=== PATIENT | male | born 1990 | race Caucasian/White ===

== ENCOUNTER 2016-12-22 17:00 | Emergency (ER) | payer SELFPAY ==
--- NOTE | 2016-12-22 17:52 | RADIOLOGY REPORT (SQ) ---
EXAM DESCRIPTION: HAND LEFT 3 VIEWS COMPLETED DATE/TIME: 12/22/2016 5:41 pm REASON FOR STUDY: pain COMPARISON: None. EXAM PARAMETERS: NUMBER OF VIEWS: Three views. TECHNIQUE: AP, lateral and oblique radiographic images acquired of the left hand. LIMITATIONS: None. FINDINGS: MINERALIZATION: Normal. BONES: A fracture involving the midportion of the 5th metacarpal is identified. No other evidence fo r fracture is seen. JOINTS: No effusions. SOFT TISSUES: No soft tissue swelling. No foreign body. OTHER: No other significant finding. IMPRESSION: Fracture of the 5th metacarpal TECHNICAL DOCUMENTATION: JOB ID: [id number] [employer]- All Rights Reserved
--- NOTE | 2016-12-22 17:53 | RADIOLOGY REPORT (SQ) ---
EXAM DESCRIPTION: HAND RIGHT 3 VIEWS COMPLETED DATE/TIME: 12/22/2016 5:41 pm REASON FOR STUDY: pain COMPARISON: None. EXAM PARAMETERS: NUMBER OF VIEWS: Three views. TECHNIQUE: AP, lateral and oblique radiographic images acquired of the right hand. LIMITATIONS: None. FINDINGS: MINERALIZATION: Normal. BONES: No acute fracture or dislocation. No worrisome bone lesions. JOINTS: No effusions. SOFT TISSUES: No soft tissue swelling. No foreign body. OTHER: Orthopedic plate transfixed by orthopedic screws is identified at the level of the 5th metacar pal. IMPRESSION: No acute fracture or dislocation. Orthopedic hardware at the level of the 5th metacarpa l. Other findings as noted above TECHNICAL DOCUMENTATION: JOB ID: [id number] [employer] All Rights Reserved
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
[2016-12-22] MEDS ORDERED: AMOXICILLIN TR/POT CLAVULANATE 500-125 MG TAB PO ONE (18:26)
[2016-12-22] MEDS: HYDROCODONE/ACETAMINOPHEN 5-325 MG 6 TAB/DSPK PO PRN ×2 (18:52→19:07)
[2016-12-22 19:14] VITALS: BP 159/91
== END 2016-12-22 19:14 | disposition home or self-care (01) ==
LOC: ER 17:00
PROC: 2W3DX1Z Immobilization of Left Lower Arm using Splint (ICD-10-PCS; principal; 2016-12-22)
DX: S62.327A Displaced fracture of shaft of fifth metacarpal bone, left hand, initial encounter for closed fracture (principal); S60.511A Abrasion of right hand, initial encounter; S60.512A Abrasion of left hand, initial encounter; M79.642 Pain in left hand; M79.641 Pain in right hand; M79.89 Other specified soft tissue disorders; Y04.2XXA Assault by strike against or bumped into by another person, initial encounter; F17.210 Nicotine dependence, cigarettes, uncomplicated
CPT/HCPCS: 99283

== ENCOUNTER 2019-12-08 20:35 | Observation (INO) | payer SELFPAY ==
[2019-12-08] MEDS ORDERED: NORMAL SALINE 1000 ML 1,000 ML IV ONE (20:49)
[2019-12-08] MEDS ORDERED: ONDANSETRON HCL INJ/PF 4 MG/2 ML SDV IV ONE (20:49)
[2019-12-08] MEDS ORDERED: FENTANYL CITRATE INJ/PF 100 MCG/2 ML AMPUL IV ONE (20:50)
--- NOTE | 2019-12-08 20:51 | ER Document Report ---
ED Medical Screen (RME) - General Stated Complaint: ABDOMINAL PAIN Time Seen by Provider: 12/08/19 20:46 Mode of Arrival: Wheelchair Information source: Patient Notes: Patient presents complaining of abdominal pain that started today with right groin pain and testicular tenderness. Patient reports nausea vomiting x6 episodes today. Patient reports decreased urine output today. Patient has a history of hypertension, depression and cholecystectomy. I have greeted and performed a rapid initial assessment of this patient. A comprehensive ED assessment and evaluation of the patient, analysis of test results and completion of the medical decision making process will be conducted by additional ED providers. TRAVEL OUTSIDE OF THE [place] IN LAST 30 DAYS: No - Related Data Allergies/Adverse Reactions: No Known Allergies Allergy (Verified 12/22/16 17:11) Past Medical History - Past Medical History Cardiac Medical History: Reports: Hx Hypertension Renal/ Medical History: Denies: Hx Peritoneal Dialysis Musculoskeltal Medical History: Reports Hx Arthritis, Reports Hx Musculoskeletal Deformity, Reports Hx Musculoskeletal Trauma Psychiatric Medical History: Reports: Hx Attention Deficit Hyperactivity Disorder, Hx Bipolar Disorder, Hx Post Traumatic Stress Disorder Traumatic Medical History: Reports: Hx Fractures - Boxer fracture and foot fracture Past Surgical History: Reports: Hx Cholecystectomy, Hx Orthopedic Surgery - Right boxer fracture - Immunizations Immunizations up to date: Yes Hx Diphtheria, Pertussis, Tetanus Vaccination: Yes Physical Exam - Vital signs Vitals: Temp Pulse Resp BP Pulse Ox 97.6 F 70 20 140/66 H 100 12/08/19 20:43 12/08/19 20:43 10 20:43 12/08/19 20:43 12/08/19 20:43 - Abdominal Tenderness: Tender - Generalized abdomen, worse to right side of abdomen Course - Vital Signs Vital signs: Temp Pulse Resp BP Pulse Ox 97.6 F 70 20 140/66 H 100 12/08/19 20:43 12/08/19 20:43 12/08/19 20:43 12/08/19 20:43 12/08/19 20:43
--- NOTE | 2019-12-08 21:56 | ER Document Report ---
ED GI/ - General Chief Complaint: Abdominal Pain Stated Complaint: ABDOMINAL PAIN Time Seen by Provider: 12/08/19 20:46 Mode of Arrival: Wheelchair Notes: CHIEF COMPLAINT: Right side abdominal pain with vomiting HPI: 29-year-old male with no kidney stone history presenting with sudden onset of right-sided abdominal pain with multiple episodes of vomiting. Patient states the pain seems to radiate from the right upper quadrant down through the right lower quadrant and up behind the testicles and scrotum. Denies hematuria. Denies fever. Has had multiple episodes of vomiting. States nothing seems to change the discomfort although he does report increased pain with palpation of the abdomen ROS: See HPI - all other systems were reviewed and are otherwise negative Constitutional: no fever Eyes: no drainage, no blurred vision ENT: no runny nose, no sore throat Cardiovascular: no chest pain Resp: no SOB, no cough GI: + vomiting, no diarrhea, + abdominal pain : no dysuria, positive pain behind testicles Integumentary: no rash Allergy: no hives Musculoskeletal: no extremity pain or swelling Neurological: no numbness/tingling, no weakness MEDICATIONS: I agree with the patient medications as charted by the RN. ALLERGIES: I agree with the allergies as charted by the RN. PAST MEDICAL HISTORY/PAST SURGICAL HISTORY: Reviewed and agree as charted by RN. SOCIAL HISTORY: Reviewed and agree as charted by RN. FAMILY HISTORY: No significant familial comorbid conditions directly related to patient complaint EXAM: Reviewed vital signs as charted by RN. CONSTITUTIONAL: Alert and oriented and responds appropriately to questions. Moderate distress secondary to pain; well-nourished HEAD: Normocephalic; atraumatic EYES: PERRL; Conjunctivae clear, sclerae non-icteric ENT: normal nose; no rhinorrhea; moist mucous membranes NECK: Supple without meningismus CARD: RRR; no murmurs, no clicks, no rubs, no gallops; symmetric distal pulses RESP: Normal chest excursion without splinting or tachypnea; breath sounds clear and equal bilaterally; no wheezes, no rhonchi, no rales, pulse oximetry 98% on room air not hypoxic ABD/GI: Normal bowel sounds; non-distended; soft, mild tenderness to the right abdomen on palpation., no rebound, no guarding; no palpable organomegaly or masses. : Uncircumcised male. Bilateral testicles are descended and nontender no palpable masses. No visible or palpable inguinal or scrotal hernias. Right testicle is not high riding. BACK: The back appears normal and is non-tender to palpation, there is no CVA tenderness EXT: Normal ROM in all joints; non-tender to palpation; no cyanosis, no effusions, no edema SKIN: Normal color for age and race; warm; diaphoretic; good turgor; no acute lesions noted NEURO: Moves all extremities equally; Motor and sensory function intact PSYCH: The patient's mood and manner are appropriate. Grooming and personal hygiene are appropriate. MDM: 29-year-old male sudden onset of right-sided abdominal pain with nausea vomiting I suspect renal colic. Initial screening labs placed via triage process. TRAVEL OUTSIDE OF THE [place] IN LAST 30 DAYS: No - Related Data Allergies/Adverse Reactions: No Known Allergies Allergy (Verified 12/22/16 17:11) Past Medical History - General Information source: Patient - Social History Smoking Status: Current Every Day Smoker Chew tobacco use (# tins/day): No Frequency of alcohol use: Occasional Drug Abuse: Marijuana Family History: Arthritis, CAD, COPD, CVA, DM, Hyperlipidemia, Hypertension. denies: Malignancy, Thyroid Disfunction - Past Medical History Cardiac Medical History: Reports: Hx Hypertension Renal/ Medical History: Denies: Hx Peritoneal Dialysis Musculoskeletal Medical History: Reports Hx Arthritis, Reports Hx Musculoskeletal Deformity, Reports Hx Musculoskeletal Trauma Psychiatric Medical History: Reports: Hx Attention Deficit Hyperactivity Disorder, Hx Bipolar Disorder, Hx Post Traumatic Stress Disorder Traumatic Medical History: Reports: Hx Fractures - Boxer fracture and foot fracture Past Surgical History: Reports: Hx Cholecystectomy, Hx Orthopedic Surgery - Right boxer fracture - Immunizations Immunizations up to date: Yes Hx Diphtheria, Pertussis, Tetanus Vaccination: Yes Physical Exam - Vital signs Vitals: Temp Pulse Resp BP Pulse Ox 97.6 F 70 20 140/66 H 100 12/08/19 20:43 12/08/19 20:43 12/08/19 20:43 12/08/19 20:43 12/08/19 20:43 Course - Re-evaluation Re-evalutation: 12/08/19 23:12 Patient with a significant leukocytosis of 23.5. Patient CT shows possible early changes of appendicitis, discussed with Dr. Malave who is in the emergency department at the moment and will go see the patient and admit. Requests Rocephin 2 g IV, clindamycin 900 mg IV. Discussed with the patient - Vital Signs Vital signs: Temp Pulse Resp BP Pulse Ox 97.6 F 70 20 140/66 H 100 12/08/19 20:43 12/08/19 20:43 12/08/19 20:43 12/08/19 20:43 12/08/19 20:43 - Laboratory Result Diagrams: 12/08/19 21:40 12/08/19 21:40 Laboratory results interpreted by me: 12/08/19 12/08/19 21:40 21:40 WBC 23.4 H Seg Neuts % (Manual) 83 H Lymphocytes % (Manual) 10 L Abs Neuts (Manual) 19.4 H Glucose 115 H Discharge - Discharge Clinical Impression: Acute appendicitis Qualifiers: Acute appendicitis type: with localized peritonitis Appendicitis gangrene presence: without gangrene Appendicitis perforation presence: without perforation Appendicitis abscess presence: without abscess Qualified Code(s): K35.30 - Acute appendicitis with localized peritonitis, without perforation or gangrene Condition: Stable Disposition: ADMITTED INPATIENT Admitting Provider: Surgicalist - Dr. Malave Unit Admitted: Surgical Floor
[2019-12-08 22:07] LABS: HEMOGLOBIN 14.3 g/dL (13.5-17.0); MEAN CORPUSCULAR HEMOGLOBIN 30.7 pg (27.0-33.4); MEAN CORPUSCULAR VOLUME 88 fl (80-97); PLATELET COUNT 229 10^3/uL (150-450); RED BLOOD COUNT 4.67 10^6/uL (4.35-5.55); RED CELL DISTRIBUTION WIDTH 13.4 % (11.5-14.0); WHITE BLOOD COUNT 23.4 10^3/uL (4.0-10.5)
[2019-12-08 22:14] LABS: ALBUMIN 4.3 g/dL (3.5-5.0); ALKALINE PHOSPHATASE 78 U/L (38-126); ANION GAP 11 (5-19); ASPARTATE AMINO TRANSFERASE 28 U/L (17-59); BILIRUBIN,DIRECT 0.2 mg/dL (0.0-0.4); BILIRUBIN,TOTAL 0.8 mg/dL (0.2-1.3); BLOOD UREA NITROGEN 10 mg/dL (7-20); CALCIUM 9.8 mg/dL (8.4-10.2); CARBON DIOXIDE 23 mmol/L (22-30); CHLORIDE 104 mmol/L (98-107); GLUCOSE 115 mg/dL (75-110); POTASSIUM 4.2 mmol/L (3.6-5.0); TOTAL PROTEIN 7.1 g/dL (6.3-8.2)
[2019-12-08 22:37] LABS: ABSOLUTE LYMPHOCYTES# (MANUAL) 2.3 10^3/uL (0.5-4.7); ABSOLUTE MONOCYTES # (MANUAL) 1.4 10^3/uL (0.1-1.4); BASOPHILS % (MANUAL) 0 % (0-2); EOSINOPHILS % (MANUAL) 1 % (0-6); LYMPHOCYTES % (MANUAL) 10 % (13-45); MONOCYTES % (MANUAL) 6 % (3-13); SEGMENTED NEUTROPHILS % (MAN) 83 % (42-78); TOTAL CELLS COUNTED 100
[2019-12-08 22:38] LABS: PLATELET COMMENT ADEQUATE; RBC MORPHOLOGY COMMENT NORMO-CYTIC/CHROMIC
--- NOTE | 2019-12-08 23:02 | RADIOLOGY REPORT (SQ) ---
EXAM DESCRIPTION: CT ABDOMEN PELVIS WITH IV CONTRAST COMPLETED DATE/TME: 12/08/2019 20:49 CLINICAL HISTORY: 29 years, Male, right side abd pain COMPARISON: None. TECHNIQUE: Postcontrast images of the abdomen and pelvis were obtained utilizing 100 mL Omnipaque 350 intravenously. Images stored on PACS. All CT scanners at this facility use dose modulation, iterative reconstruction, and/or weight based dosing when appropriate to reduce radiation dose to as low as reasonably achievable (ALARA). [facility]: Dose Right [facility]: CareDose [facility]: Dose Right [facility]: Teradose 4D [facility]: gestigon LIMITATIONS: None. FINDINGS: The visualized lung bases are clear. There is mild fat stranding adjacent to the appendix and there is hyperenhancement of the appendiceal wall, concerning for early acute appendicitis. No evidence of abscess, free air, or free fluid. There is generalized fatty infiltration of the liver. The patient is status post cholecystectomy. No additional solid or hollow visceral and abnormality is seen. No acute or suspicious bony abnormality is seen. IMPRESSION: Abnormal appearance about the appendix most consistent with changes of early acute appendicitis. No evidence of free air or abscess. TECHNICAL DOCUMENTATION: Quality ID # [id number]: Final reports with documentation of one or more dose reduction techniques (e.g., Automated exposure control, adjustment of the mA and/or kV according to patient size, use of iterative reconstruction technique) copyright 2011 [employer]- All Rights Reserved
[2019-12-08] MEDS ORDERED: CEFTRIAXONE 2 GM/D5W RTU 2 GM/50 ML RTUPB IV ONE (23:11)
[2019-12-08] MEDS ORDERED: CLINDAMYCIN 900 MG/D5W RTU 900 MG/50 ML RTUPB IV ONE (23:11)
[2019-12-08 23:24] LABS: APPEARANCE,URINE CLEAR; BILIRUBIN,URINE NEGATIVE (NEGATIVE); COLOR,URINE YELLOW; GLUCOSE, URINE NEGATIVE (NEGATIVE); KETONES,URINE 20 mg/dL (NEGATIVE); LEUKOCYTE ESTERASE,URINE NEGATIVE (NEGATIVE); NITRITE,URINE NEGATIVE (NEGATIVE); PROTEIN,URINE 30 mg/dL (NEGATIVE); URINE SPECIFIC GRAVITY 1.044; UROBILINOGEN,URINE NEGATIVE mg/dL (<2.0)
--- NOTE | 2019-12-08 23:57 | PDOC H&P ---
History of Present Illness Admission Date/PCP: 12/08/19 23:22 Patient complains of: Right lower quadrant pain for 12 hours History of Present Illness: NICOLE NARAYANAN is a 29 year old male, healthy, obese, with a 12-hour history of right lower quadrant pain intense nausea. The pain has become more intense since the morning and prompted the patient to come to emergency room. Past Medical History Cardiac Medical History: Reports: Hypertension Musculoskeltal Medical History: Reports: Arthritis Psychiatric Medical History: Reports: Attention Deficit Hyperactivity Disorder, Bipolar Disorder, Post Traumatic Stress Disorder Past Surgical History Past Surgical History: Reports: Cholecystectomy, Orthopedic Surgery - Right boxer fracture Social History Smoking Status: Current Every Day Smoker Electronic Cigarette use?: No Family History Family History: Arthritis, CAD, COPD, CVA, DM, Hyperlipidemia, Hypertension. denies: Malignancy, Thyroid Disfunction Parental Family History Reviewed: Yes - Multiple conditions, see above Children Family History Reviewed: No Sibling(s) Family History Reviewed.: No Medication/Allergy Home Medications: Hydrocodone Bit/Acetaminophen [Vicodin 5-500 mg Tablet] 1 - 2 tab PO ASDIR PRN #15 tablet 11/28/11 No Home Medications 1 11/28/11 Doxycycline Hyclate 100 mg PO BID #20 capsule 10/21/14 Hydrocodone/Acetaminophen [[place]umming 5-325 Tablet] 1 each PO Q4 PRN #12 tablet 10/21/14 Amox Tr/Potassium Clavulanate [Augmentin 875-125 Tablet] 1 tab PO BID 10 Days tablet 12/22/16 Allergies/Adverse Reactions: No Known Allergies Allergy (Verified 12/22/16 17:11) Physical Exam Vital Signs: Temp Pulse Resp BP Pulse Ox 97.6 F 70 20 140/66 H 100 12/08/19 20:43 12/08/19 20:43 12/08/19 20:43 12/08/19 20:43 12/08/19 20:43 Intake & Output 12/07/19 12/08/19 12/09/19 06:59 06:59 06:59 Weight 129.7 kg General appearance: PRESENT: mild distress, obese Head exam: PRESENT: atraumatic Eye exam: PRESENT: EOMI Mouth exam: PRESENT: neck supple Teeth exam: PRESENT: poor dentation Neck exam: PRESENT: full ROM Respiratory exam: PRESENT: clear to auscultation garrett Cardiovascular exam: PRESENT: RRR GI/Abdominal exam: PRESENT: guarding - Lower quadrant, hypoactive bowel sounds, soft, tenderness - Lower quadrant Rectal exam: PRESENT: deferred Extremities exam: PRESENT: full ROM Musculoskeletal exam: PRESENT: full ROM Neurological exam: PRESENT: alert, awake, oriented to person Psychiatric exam: PRESENT: appropriate affect Skin exam: PRESENT: warm Results Laboratory Results: 12/08/19 21:40 12/08/19 21:40 12/08/19 12/08/19 12/08/19 21:40 21:40 23:00 WBC 23.4 H RBC 4.67 Hgb 14.3 Hct 41.0 MCV 88 MCH 30.7 MCHC 35.0 RDW 13.4 Plt Count 229 Seg Neutrophils % Not Reportable Sodium 137.9 Potassium 4.2 Chloride 104 Carbon Dioxide 23 Anion Gap 11 BUN 10 Creatinine 0.88 Est GFR ( Amer) > 60 Glucose 115 H Calcium 9.8 Total Bilirubin 0.8 AST 28 Alkaline Phosphatase 78 Total Protein 7.1 Albumin 4.3 Lipase 102.3 Urine Color YELLOW Urine Appearance CLEAR Urine pH 9.0 Ur Specific [place] 1.044 Urine Protein 30 H Urine Glucose (UA) NEGATIVE Urine Ketones 20 H Urine Blood NEGATIVE Urine Nitrite NEGATIVE Ur Leukocyte Esterase NEGATIVE Urine WBC (Auto) 0 Urine RBC (Auto) 3 Impressions: Abdomen/Pelvis CT 12/08/19 20:49 IMPRESSION: Abnormal appearance about the appendix most consistent with changes of early acute appendicitis. No evidence of free air or abscess. TECHNICAL DOCUMENTATION: Quality ID # [id number]: Final reports with documentation of one or more dose reduction techniques (e.g., Automated exposure control, adjustment of the mA and/or kV according to patient size, use of iterative reconstruction technique) copyright 2011 [employer]- All Rights Reserved Assessment & Plan - Diagnosis (1) Acute appendicitis Qualifiers: Acute appendicitis type: with localized peritonitis Appendicitis gangrene presence: without gangrene Appendicitis perforation presence: without perforation Appendicitis abscess presence: without abscess Qualified Code(s): K35.30 - Acute appendicitis with localized peritonitis, without perforation or gangrene - Time Anticipated Discharge Disposition: Home, Self Care Anticipated Discharge Timeframe: within 48 hours - Plan Summary Plan Summary: Assessment: Right lower quadrant pain for the past 12 hours Leukocytosis 23,[address] scan abdomen/pelvis significant for acute appendicitis No other significant medical problems Plan: Rapid the COVID-19 test Laparoscopic appendectomy, possible open tonight Procedure, benefits, complications, risks, explained to the patient, he understands all the above, his questions answered, he decides to proceed Rocephin 2 g IV piggyback Clindamycin 900 mg IV piggyback P.o. preop Normal saline 2 L bolus and then 150 L per hour
[2019-12-09] MEDS ORDERED: BUPIVACAINE HCL 0.5%-EPI 1:200000 INJ/PF 30 ML VIAL ONE (00:35)
[2019-12-09] MEDS ORDERED: HYDROMORPHONE HCL INJ/PF 2 MG/ML AMPULE ONE ×2 (01:42→06:57)
[2019-12-09] MEDS ORDERED: FENTANYL CITRATE INJ/PF 250 MCG/5 ML AMPULE ONE (01:42)
[2019-12-09] MEDS ORDERED: MIDAZOLAM 2 MG/2 ML INJ ONE ×2 (01:42→06:58)
[2019-12-09] MEDS ORDERED: PROPOFOL INJ 200 MG/20 ML VIAL IV ONE ×2 (01:42→06:58)
[2019-12-09] MEDS ORDERED: ROCURONIUM BROMIDE INJ 50 MG/5 ML VIAL IV ONE (02:00)
[2019-12-09] MEDS ORDERED: SUCCINYLCHOLINE CHLORIDE INJ 200 MG/10 ML VIAL ONE (02:00)
[2019-12-09] MEDS ORDERED: ONDANSETRON HCL INJ/PF 4 MG/2 ML SDV ONE (02:00)
[2019-12-09] MEDS ORDERED: DEXAMETHASONE SOD PHOSPHATE INJ 4 MG/1 ML VIAL ONE (02:00)
[2019-12-09] MEDS ORDERED: NEOSTIGMINE METHYLSULFATE 10 MG/10 ML VIAL ONE (02:00)
[2019-12-09] MEDS ORDERED: GLYCOPYRROLATE 1 MG/5 ML VIAL ONE (02:00)
[2019-12-09] MEDS ORDERED: ALBUTEROL SULFATE HFA (90 MCG/PUFF) 8 GM MDI IH ONE (02:00)
[2019-12-09] MEDS ORDERED: MORPHINE SULFATE 10 MG/ML INJ IV PRN (02:15)
[2019-12-09] MEDS ORDERED: FENTANYL CITRATE INJ/PF 100 MCG/2 ML AMPUL IV PRN ×3 (02:15)
[2019-12-09] MEDS ORDERED: DIPHENHYDRAMINE HCL 50 MG/ML VIAL IV PRN (02:15)
[2019-12-09] MEDS ORDERED: PROMETHAZINE HCL INJ 25 MG/1 ML VIAL IV PRN (02:15)
[2019-12-09] MEDS ORDERED: MEPERIDINE HCL/PF INJ 25 MG/1 ML DISP.SYRIN IV PRN (02:15)
--- NOTE | 2019-12-09 02:30 | Operative Report ---
Operative Report DATE OF SURGERY: 12/09/19 PREOPERATIVE DIAGNOSIS: acute appendicitis POSTOPERATIVE DIAGNOSIS: same OPERATION: Laparoscopic appendectomy SURGEON: AVE ONTIVEROS ANESTHESIA: GA - 20 mL 0.25% Marcaine TISSUE REMOVED OR ALTERED: Appendix COMPLICATIONS: None ESTIMATED BLOOD LOSS: Negligible INTRAOPERATIVE FINDINGS: Acutely inflamed appendix without perforation PROCEDURE: The procedure was done in the operating room. The patient was placed in a supine position, general anesthesia induced by endotracheal intubation, the abdomen was prepped and draped in usual fashion. An incision was made just above the umbilicus with a #15 blade, the skin was tented with towel clips and a 5 mm port with Optiview adapter and scope were inserted through the abdominal wall into the peritoneal cavity. After they CO2 pneumoperitoneum was obtained, under direct visualization a 5 mm report was inserted in the right lateral quadrant of the abdomen following skin incision. The scope was removed from the umbilical port and inserted into the right side port. The 5 mm umbilical port w as removed and replaced with a 12 mm port, while the 5 mm port was inserted in left lower quadrant of the abdomen following skin incision. The patient was placed in steep Trendelenburg position with the right side elevated. The appendix was then identified by tracing the anterior tenia of the cecum, the appendix was then found, elevated, and stretched. The mesentery of the appendix was divided with the LigaSure. The appendix was found to be [non-perforated]. The appendix was stapled at the base with an Endo ROMAIN stapler, extracted from the peritoneal cavity with an Endobag through the umbilical port. The pneumoperitoneum was then re-established, the stapled line was examined and found to be intact. The right lower quadrant was then irrigated with normal saline until clear. The umbilical fascial defect was closed with a [id number] 0 Vicryl suture, placed with a fascia closure device under direct visualization and left untied. All instruments were removed, the pneumoperitoneum was released, and all ports were removed. The umbilical fascial defect was closed with the previously placed [id number] 0 Vicryl suture, all skin incisions were closed with a 4-0 PDS running subcuticular suture, and covered with Dermabond. The patient tolerated the procedure well, was extubated, and transferred to the recovery room in satisfactory conditions.
[2019-12-09] MEDS ORDERED: ONDANSETRON HCL INJ/PF 4 MG/2 ML SDV IV PRN (02:34)
[2019-12-09] MEDS ORDERED: KETOROLAC TROMETHAMINE INJ/PF 30 MG/1 ML SDV IV SCH (02:45)
[2019-12-09] MEDS ORDERED: FAMOTIDINE INJ/PF 20 MG/2 ML SDV IV SCH (02:45)
[2019-12-09] MEDS ORDERED: DOCUSATE SODIUM 100 MG CAPSULE PO SCH (03:00)
[2019-12-09] MEDS: NORMAL SALINE 1000 ML 1,000 ML IV PRN ×2 (05:02→09:44)
[2019-12-09] MEDS: FAMOTIDINE INJ/PF 20 MG/2 ML SDV IV SCH ×2 (05:07→21:07)
[2019-12-09] MEDS: DOCUSATE SODIUM 100 MG CAPSULE PO SCH ×3 (05:07→17:03)
[2019-12-09] MEDS ORDERED: CLINDAMYCIN 900 MG/D5W RTU 900 MG/50 ML RTUPB IV SCH (06:00)
[2019-12-09] MEDS ORDERED: FENTANYL CITRATE INJ/PF 100 MCG/2 ML AMPUL ONE (06:57)
[2019-12-09] MEDS: ENOXAPARIN SODIUM INJ 40 MG/0.4 ML DISP.SYRIN SUBCUT SCH (09:45)
[2019-12-09] MEDS: TRAMADOL HCL 50 MG TABLET PO PRN ×2 (10:46→18:08)
--- NOTE | 2019-12-09 11:05 | PDOC PROGRESS REPORT ---
Subjective Progress Note for:: 12/09/19 Subjective:: Patient comfortable, complaining of incisional abdominal pain Reason For Visit: ACCUTE APPENDICITIS Physical Exam Vital Signs: Temp Pulse Resp BP Pulse Ox 98.2 F 58 L 18 121/67 97 12/09/19 08:34 12/09/19 08:34 12/09/19 08:34 12/09/19 08:34 12/09/19 08:34 Intake & Output 12/08/19 12/09/19 12/10/19 06:59 06:59 06:59 Intake Total 2170 705 Output Total 305 Balance 1865 705 Weight 126.8 kg General appearance: PRESENT: no acute distress, obese Respiratory exam: PRESENT: clear to auscultation garrett Cardiovascular exam: PRESENT: RRR GI/Abdominal exam: PRESENT: hypoactive bowel sounds, soft, tenderness - At the incisions, other - Incisions clean, dry, and intact Results Laboratory Results: 12/08/19 21:40 12/08/19 21:40 12/08/19 12/08/19 12/08/19 21:40 21:40 23:00 WBC 23.4 H RBC 4.67 Hgb 14.3 Hct 41.0 MCV 88 MCH 30.7 MCHC 35.0 RDW 13.4 Plt Count 229 Seg Neutrophils % Not Reportable Sodium 137.9 Potassium 4.2 Chloride 104 Carbon Dioxide 23 Anion Gap 11 BUN 10 Creatinine 0.88 Est GFR ( Amer) > 60 Glucose 115 H Calcium 9.8 Total Bilirubin 0.8 AST 28 Alkaline Phosphatase 78 Total Protein 7.1 Albumin 4.3 Lipase 102.3 Urine Color YELLOW Urine Appearance CLEAR Urine pH 9.0 Ur Specific [place] 1.044 Urine Protein 30 H Urine Glucose (UA) NEGATIVE Urine Ketones 20 H Urine Blood NEGATIVE Urine Nitrite NEGATIVE Ur Leukocyte Esterase NEGATIVE Urine WBC (Auto) 0 Urine RBC (Auto) 3 Impressions: Abdomen/Pelvis CT 12/08/19 20:49 IMPRESSION: Abnormal appearance about the appendix most consistent with changes of early acute appendicitis. No evidence of free air or abscess. TECHNICAL DOCUMENTATION: Quality ID # [id number]: Final reports with documentation of one or more dose reduction techniques (e.g., Automated exposure control, adjustment of the mA and/or kV according to patient size, use of iterative reconstruction technique) copyright 2011 [employer]- All Rights Reserved Assessment & Plan - Diagnosis (1) Acute appendicitis Qualifiers: Acute appendicitis type: with localized peritonitis Appendicitis gangrene presence: without gangrene Appendicitis perforation presence: without perforation Appendicitis abscess presence: without abscess Qualified Code(s): K35.30 - Acute appendicitis with localized peritonitis, without perforation or gangrene - Time Anticipated Discharge Disposition: Home, Self Care Anticipated Discharge Timeframe: within 24 hours - Plan Summary Plan Summary: Assessment: Postoperative day #0 following laparoscopic appendectomy for acute, nonperforated appendicitis Patient afebrile with stable vital signs Patient tolerating clear liquid well Abdomen soft with incisional pain Plan: Advance diet to regular diet Hep-Lock IV fluids if the patient tolerates p.o. well Possible discharge tomorrow if the patient continues to improve clinically and his white blood cell count approaches normal level
[2019-12-09] MEDS: ACETAMINOPHEN 1,000 MG/100 ML RTUPB IV SCH ×3 (11:33→23:19)
[2019-12-09 12:08] LABS: HEMATOCRIT 41.6 % (37.9-51.0); HEMOGLOBIN 14.4 g/dL (13.5-17.0); MEAN CORPUSCULAR HEMOGLOBIN 30.7 pg (27.0-33.4); MEAN CORPUSCULAR HGB CONC 34.7 g/dL (32.0-36.0); MEAN CORPUSCULAR VOLUME 88 fl (80-97); PLATELET COUNT 245 10^3/uL (150-450); RED CELL DISTRIBUTION WIDTH 13.9 % (11.5-14.0); WHITE BLOOD COUNT 27.8 10^3/uL (4.0-10.5)
[2019-12-09 12:27] LABS: ANION GAP 11 (5-19); BLOOD UREA NITROGEN 7 mg/dL (7-20); CALCIUM 9.3 mg/dL (8.4-10.2); CARBON DIOXIDE 26 mmol/L (22-30); CHLORIDE 103 mmol/L (98-107); GLUCOSE 126 mg/dL (75-110); POTASSIUM 4.3 mmol/L (3.6-5.0)
[2019-12-09 12:37] LABS: ABSOLUTE LYMPHOCYTES# (MANUAL) 2.8 10^3/uL (0.5-4.7); ABSOLUTE MONOCYTES # (MANUAL) 0.8 10^3/uL (0.1-1.4); BASOPHILS % (MANUAL) 0 % (0-2); EOSINOPHILS % (MANUAL) 0 % (0-6); LYMPHOCYTES % (MANUAL) 10 % (13-45); MONOCYTES % (MANUAL) 3 % (3-13); SEGMENTED NEUTROPHILS % (MAN) 87 % (42-78); TOTAL CELLS COUNTED 100
[2019-12-09 12:38] LABS: ANISOCYTOSIS SLIGHT; POIKILOCYTOSIS SLIGHT; POLYCHROMASIA SLIGHT
[2019-12-09 12:39] LABS: TEAR DROP CELLS SLIGHT
[2019-12-09 12:40] LABS: PLATELET COMMENT ADEQUATE
[2019-12-09] MEDS: CLINDAMYCIN 900 MG/D5W RTU 900 MG/50 ML RTUPB IV SCH ×2 (14:32→22:12)
[2019-12-09] MEDS ORDERED: MELATONIN 5 MG TABLET PO PRN (21:25)
[2019-12-09] MEDS ORDERED: CEFTRIAXONE 2 GM/D5W RTU 2 GM/50 ML RTUPB IV SCH (22:00)
[2019-12-09] MEDS ORDERED: NICOTINE 21 MG/24 HR PATCH.TD24 TD PRN (22:00)
[2019-12-09] MEDS: KETOROLAC TROMETHAMINE INJ/PF 30 MG/1 ML SDV IV PRN (22:17)
[2019-12-10] MEDS: CLINDAMYCIN 900 MG/D5W RTU 900 MG/50 ML RTUPB IV SCH (05:15)
[2019-12-10 06:19] LABS: ANION GAP 6 (5-19); BLOOD UREA NITROGEN 13 mg/dL (7-20); CALCIUM 8.9 mg/dL (8.4-10.2); CARBON DIOXIDE 28 mmol/L (22-30); CHLORIDE 104 mmol/L (98-107); GLUCOSE 90 mg/dL (75-110)
[2019-12-10] MEDS: ACETAMINOPHEN 1,000 MG/100 ML RTUPB IV SCH (06:26)
[2019-12-10 07:40] LABS: ABSOLUTE BASOPHILS # (AUTO) 0.1 10^3/uL (0.0-0.2); ABSOLUTE EOSINOPHILS # (AUTO) 0.3 10^3/uL (0.0-0.6); ABSOLUTE LYMPHOCYTES (AUTO) 3.6 10^3/uL (0.5-4.7); ABSOLUTE MONOCYTES (AUTO) 0.7 10^3/uL (0.1-1.4); ABSOLUTE NEUT (AUTO) 7.7 10^3/uL (1.7-8.2); BASOPHILS % (AUTO) 0.5 % (0-2); EOSINOPHILS % (AUTO) 2.5 % (0-6); HEMATOCRIT 37.9 % (37.9-51.0); HEMOGLOBIN 13.1 g/dL (13.5-17.0); LYMPHOCYTES % (AUTO) 28.8 % (13-45); MEAN CORPUSCULAR HEMOGLOBIN 30.8 pg (27.0-33.4); MEAN CORPUSCULAR HGB CONC 34.6 g/dL (32.0-36.0); MEAN CORPUSCULAR VOLUME 89 fl (80-97); MONOCYTES % (AUTO) 5.8 % (3-13); PLATELET COUNT 186 10^3/uL (150-450); RED BLOOD COUNT 4.26 10^6/uL (4.35-5.55); SEGMENTED NEUTROPHILS % (AUTO) 62.4 % (42-78); TOTAL CELLS COUNTED % (AUTO) 100 %; WHITE BLOOD COUNT 12.4 10^3/uL (4.0-10.5)
[2019-12-10] MEDS: KETOROLAC TROMETHAMINE INJ/PF 30 MG/1 ML SDV IV PRN (09:32)
--- NOTE | 2019-12-10 09:37 | PDOC DISCHARGE SUMMARY ---
General - Admit/Disc Date/PCP Admission Date/Primary Care Provider: 12/08/19 23:22 Discharge Date: 12/10/19 - Discharge Diagnosis Final Diagnosis: ACUTE APPENDICITIS - Assessment Summary: Patient was admitted for acute onset right lower quadrant abdominal pain he was taken to the operating room where he underwent an uncomplicated appendectomy laparoscopic for acute appendicitis. Postoperatively had routine benign postop course he was started on clear liquid diet which was slowly advanced. His white count was initially elevated at 27 has now come down to 12 on postop day 1. Currently is afebrile with stable vital signs is tolerating a diet and ready for discharge home. He will be given a follow-up appointment in 7 to 10 days in surgical clinic. He has minimal if any abdominal pain and therefore is instructed to use Motrin for any incisional tenderness. - Additional Information Resuscitation Status: Full Code Discharge Diet: As Tolerated Discharge Activity: Activity As Tolerated, No Lifting Over 10 Pounds - F/U IN SURGERY CLINIC IN 7-10 DAYS Home Medications: Escitalopram Oxalate [Lexapro 10 mg Tablet] 10 mg PO DAILY 12/09/19 Prazosin HCl 1 mg PO QHS 12/09/19 History of Present Illiness History of Present Illness: NICOLE NARAYANAN is a 29 year old male Physical Exam Vital Signs: Temp Pulse Resp BP Pulse Ox 97.5 F 59 L 19 138/67 H 96 12/10/19 07:33 12/10/19 07:33 12/10/19 07:33 12/10/19 07:33 12/10/19 07:33 Intake & Output 12/09/19 12/10/19 12/11/19 06:59 06:59 06:59 Intake Total 2170 3685 Output Total 305 575 Balance 1865 3110 Weight 126.8 kg 127.6 kg Results Laboratory Results: WBC 12.4 10^3/uL (4.0-10.5) H 12/10/19 07:14 RBC 4.26 10^6/uL (4.35-5.55) L 12/10/19 07:14 Hgb 13.1 g/dL (13.5-17.0) L 12/10/19 07:14 Hct 37.9 % (37.9-51.0) 12/10/19 07:14 MCV 89 fl (80-97) 12/10/19 07:14 MCH 30.8 pg (27.0-33.4) 12/10/19 07:14 MCHC 34.6 g/dL (32.0-36.0) 12/10/19 07:14 RDW 14.0 % (11.5-14.0) 12/10/19 07:14 Plt Count 186 10^3/uL (150-450) 12/10/19 07:14 Lymph % (Auto) 28.8 % (13-45) 12/10/19 07:14 [place] % (Auto) 5.8 % (3-13) 12/10/19 07:14 Eos % (Auto) 2.5 % (0-6) 12/10/19 07:14 Baso % (Auto) 0.5 % (0-2) 12/10/19 07:14 Absolute Neuts (auto) 7.7 10^3/uL (1.7-8.2) 12/10/19 07:14 Absolute Lymphs (auto) 3.6 10^3/uL (0.5-4.7) 12/10/19 07:14 Absolute Monos (auto) 0.7 10^3/uL (0.1-1.4) 12/10/19 07:14 Absolute Eos (auto) 0.3 10^3/uL (0.0-0.6) 12/10/19 07:14 Absolute Basos (auto) 0.1 10^3/uL (0.0-0.2) 12/10/19 07:14 Total Counted 100 12/09/19 11:37 Seg Neutrophils % 62.4 % (42-78) 12/10/19 07:14 Seg Neuts % (Manual) 87 % (42-78) H 12/09/19 11:37 Lymphocytes % (Manual) 10 % (13-45) L 12/09/19 11:37 Monocytes % (Manual) 3 % (3-13) 12/09/19 11:37 Eosinophils % (Manual) 0 % (0-6) 12/09/19 11:37 Basophils % (Manual) 0 % (0-2) 12/09/19 11:37 Abs Neuts (Manual) 24.2 10^3/uL (1.7-8.2) H 12/09/19 11:37 Abs Lymphs (Manual) 2.8 10^3/uL (0.5-4.7) 12/09/19 11:37 Abs Monocytes (Manual) 0.8 10^3/uL (0.1-1.4) 12/09/19 11:37 Absolute Eos (Manual) 0.0 10^3/uL (0.0-0.6) 12/09/19 11:37 Abs Basophils (Manual) 0.0 10^3/uL (0.0-0.2) 12/09/19 11:37 Platelet Estimate Cancelled 12/10/19 05:15 Platelet Comment ADEQUATE 12/09/19 11:37 Polychromasia SLIGHT 12/09/19 11:37 Poikilocytosis SLIGHT 12/09/19 11:37 Anisocytosis SLIGHT 12/09/19 11:37 Tear Drop Cells SLIGHT 12/09/19 11:37 RBC Morph Comment NORMO-CYTIC/CHROMIC 12/08/19 21:40 Sodium 137.9 mmol/L (137-145) 12/10/19 05:15 Potassium 4.0 mmol/L (3.6-5.0) 12/10/19 05:15 Chloride 104 mmol/L (98-107) 12/10/19 05:15 Carbon Dioxide 28 mmol/L (22-30) 12/10/19 05:15 Anion Gap 6 (5-19) 12/10/19 05:15 BUN 13 mg/dL (7-20) 12/10/19 05:15 Creatinine 0.83 mg/dL (0.52-1.25) 12/10/19 05:15 Est GFR ( Amer) > 60 (>60) 12/10/19 05:15 Est GFR (MDRD) Non-Af > 60 (>60) 12/10/19 05:15 Glucose 90 mg/dL (75-110) 12/10/19 05:15 Calcium 8.9 mg/dL (8.4-10.2) 12/10/19 05:15 Total Bilirubin 0.8 mg/dL (0.2-1.3) 12/08/19 21:40 Direct Bilirubin 0.2 mg/dL (0.0-0.4) 12/08/19 21:40 Neonat Total Bilirubin Not Reportable 12/08/19 21:40 Neonat Direct Bilirubin Not Reportable 12/08/19 21:40 Neonat Indirect Bili Not Reportable 12/08/19 21:40 AST 28 U/L (17-59) 12/08/19 21:40 ALT 27 U/L (<50) 12/08/19 21:40 Alkaline Phosphatase 78 U/L (38-126) 12/08/19 21:40 Total Protein 7.1 g/dL (6.3-8.2) 12/08/19 21:40 Albumin 4.3 g/dL (3.5-5.0) 12/08/19 21:40 Lipase 102.3 U/L (23-300) 12/08/19 21:40 Urine Color YELLOW 12/08/19 23:00 Urine Appearance CLEAR 12/08/19 23:00 Urine pH 9.0 (5.0-9.0) 12/08/19 23:00 Ur Specific [place] 1.044 12/08/19 23:00 Urine Protein 30 mg/dL (NEGATIVE) H 12/08/19 23:00 Urine Glucose (UA) NEGATIVE mg/dL (NEGATIVE) 12/08/19 23:00 Urine Ketones 20 mg/dL (NEGATIVE) H 12/08/19 23:00 Urine Blood NEGATIVE (NEGATIVE) 12/08/19 23:00 Urine Nitrite NEGATIVE (NEGATIVE) 12/08/19 23:00 Urine Bilirubin NEGATIVE (NEGATIVE) 12/08/19 23:00 Urine Urobilinogen NEGATIVE mg/dL (<2.0) 12/08/19 23:00 Ur Leukocyte Esterase NEGATIVE (NEGATIVE) 12/08/19 23:00 Urine WBC (Auto) 0 /HPF 12/08/19 23:00 Urine RBC (Auto) 3 /HPF 12/08/19 23:00 Urine Mucus (Auto) RARE /LPF 12/08/19 23:00 Urine Ascorbic Acid NEGATIVE (NEGATIVE) 12/08/19 23:00 SARS-CoV-2 (PCR) NEGATIVE (NEGATIVE) 12/09/19 00:00 Slides for Path Review Cancelled 12/10/19 05:15 Impressions: Abdomen/Pelvis CT 12/08/19 20:49 IMPRESSION: Abnormal appearance about the appendix most consistent with changes of early acute appendicitis. No evidence of free air or abscess. TECHNICAL DOCUMENTATION: Quality ID # [id number]: Final reports with documentation of one or more dose reduction techniques (e.g., Automated exposure control, adjustment of the mA and/or kV according to patient size, use of iterative reconstruction technique) copyright 2011 [email or web address]- All Rights Reserved
[2019-12-10] MEDS: DOCUSATE SODIUM 100 MG CAPSULE PO SCH (09:55)
[2019-12-10] MEDS: FAMOTIDINE INJ/PF 20 MG/2 ML SDV IV SCH (09:56)
[2019-12-10] MEDS: ENOXAPARIN SODIUM INJ 40 MG/0.4 ML DISP.SYRIN SUBCUT SCH (09:56)
[2019-12-10 11:13] VITALS: BP 148/64
== END 2019-12-10 11:34 | disposition home or self-care (01) ==
LOC: ER 20:35 → INTOOBSV 23:22 → EH 23:22 → 4N 12-09 03:30
PROVIDERS: ATTEND Surgery
DX: K35.30 Acute appendicitis with localized peritonitis, without perforation or gangrene (principal); E66.9 Obesity, unspecified; F17.200 Nicotine dependence, unspecified, uncomplicated; F19.11 Other psychoactive substance abuse, in remission; N50.812 Left testicular pain; N50.811 Right testicular pain; F12.10 Cannabis abuse, uncomplicated; Z90.49 Acquired absence of other specified parts of digestive tract; Z03.818 Encounter for observation for suspected exposure to other biological agents ruled out
CPT/HCPCS: 99285; 96361; 96374; 96375; 36415 ×3; 87040; 83690; 85025 ×3; 87635; 80048 ×2; 80053; 81001; 88304 ×2; 74177; 94799; 99140; 00840; 44970; G0378 ×3; J2250; J3490 ×8; J1100; J3010 ×2; J1885 ×2; J2710; J1650 ×2; J1170; J0330; J2405 ×3; J7030 ×2; J2704; S0028 ×2; J0131 ×2; J0696; C9803; 840